=== PATIENT | male | born 1965 | race African-American/Black ===

== ENCOUNTER 2017-10-18 21:58 | Emergency (ER) | payer MEDICAID ==
[~2017-10-18] VITALS: Ht 172.7 cm; Wt 79.0 kg
[2017-10-18] MEDS ORDERED: LIDOCAINE 5% PATCH TOP SCH (22:45)
[2017-10-18] MEDS ORDERED: KETOROLAC 60MG/2ML VIAL IM ONE (22:45)
[2017-10-19 02:04] VITALS: BP 120/67
== END 2017-10-19 02:08 | disposition home or self-care (01) ==
LOC: ER 21:58
DX: M48.061 Spinal stenosis, lumbar region without neurogenic claudication (principal); G89.29 Other chronic pain; I10 Essential (primary) hypertension; E11.9 Type 2 diabetes mellitus without complications; E78.00 Pure hypercholesterolemia, unspecified; F17.200 Nicotine dependence, unspecified, uncomplicated; F12.10 Cannabis abuse, uncomplicated; Z88.0 Allergy status to penicillin; Z88.2 Allergy status to sulfonamides
CPT/HCPCS: 96372; 99283; J1885; J7030